=== PATIENT | female | born 1980 | race Caucasian/White ===

== ENCOUNTER 2021-03-02 13:48 | Outpatient (REF) | payer OTHER, SELFPAY ==
--- NOTE | ~2021-03-02 | US_ITS ---
EXAMINATION: US RETROPERITONEAL LIMITED (RENAL ONLY) CLINICAL INFORMATION: Nephrolithiasis. COMPARISON: Renals on the ultrasound dated 02/18/2018. TECHNIQUE: Real-time imaging of the kidneys. FINDINGS: RIGHT KIDNEY: 11.2 x 3.9 x 5.6 cm (SAG x AP x TRV). The kidney is normal in size, contour, and echogenicity. Renal cortical thickness is normal. No calculi or focal parenchymal lesions. No hydronephrosis. LEFT KIDNEY: 10.5 x 5.9 x 5.8 cm (SAG x AP x TRV). The kidney is normal in size, contour, and echogenicity. Renal cortical thickness is normal. No cystic or solid lesions seen. No hydronephrosis. There are multiple echogenic foci seen scattered throughout the left kidney. There is an echogenic midpole stone measuring 0.3 x 0.2 x 0.3 cm without caliectasis. No additional echogenic calculi visualized. There is no hydronephrosis. US/US renal BI IMPRESSION: Small echogenic stone midpole left kidney without caliectasis. There are multiple echogenic scattered foci in the kidneys. The right kidney is unremarkable.
== END 2021-03-02 13:49 | disposition home or self-care (01) ==
LOC: HO.US 13:48
PROVIDERS: Visit Provider Urology
DX: N20.0 Calculus of kidney (principal)
CPT/HCPCS: 76775

== ENCOUNTER → 2021-03-17 13:59 | Outpatient (BNVA) | payer OTHER, SELFPAY | PROVIDERS: PCP Internal Medicine; Visit Provider Urology ==

== ENCOUNTER 2022-04-03 14:47 | Outpatient (REF) | payer OTHER, SELFPAY ==
--- NOTE | ~2022-04-03 | US_ITS ---
EXAMINATION: US RETROPERITONEAL LIMITED (RENAL ONLY) CLINICAL INFORMATION: Calculus of kidney. COMPARISON: Renal ultrasound 03/02/2021 and 02/18/2018. TECHNIQUE: Real-time imaging of the kidneys. FINDINGS: RIGHT KIDNEY: 12.2 x 4.5 x 5.3 cm (SAG x AP x TRV). The kidney is normal in size, contour, and echogenicity. Renal cortical thickness is normal. No calculi or focal parenchymal lesions. No hydronephrosis. LEFT KIDNEY: 11.1 x 5.6 x 5.0 cm (SAG x AP x TRV). The kidney is normal in size, contour, and echogenicity. Renal cortical thickness is normal. No focal parenchymal lesions or hydronephrosis. There is an echogenic focus consistent with small calculus seen within the midpole region measuring approximately 3 mm in largest dimension. US/US renal BI IMPRESSION: Left nephrolithiasis without obstructive uropathy..
== END 2022-04-03 14:48 | disposition home or self-care (01) ==
LOC: HO.US 14:47
PROVIDERS: PCP Internal Medicine; Visit Provider Urology
DX: N20.0 Calculus of kidney (principal)
CPT/HCPCS: 76775

== ENCOUNTER 2022-08-15 05:41 | Day surgery (SDC) | payer OTHER, SELFPAY ==
[2022-08-08 15:33] VITALS: BMI 29.9
--- NOTE | 2022-08-14 08:48 | HO.ANESPROP2 ---
Documented by User: Deana Hayward NP 08/14/22 08:49 HPI - Anesthesia Eval Consult details Narrative: 41yo F for Right Bunionectomy Tailor, PCP cleared PMFSH Active Problems Active Problems: All Active Problems (Updated 08/13/22 @ 10:12 by Veronica Rodriguez, [place]) Nephrolithiasis (Acute) Past Medical History Medical History Allergies Exercise-induced asthma Glaucoma History of kidney stones History of shingles Hx of migraines Surgical History Surgical History History of cystoscopy [place] teeth extracted Social History Social History Are you a primary customer care voice consultant to a significant other at home: No Do you presently have visiting nurse or other home services: No Patient Tobacco Use Status: Never used Tobacco Use of substances other than those prescribed or required for medical reasons: No Have you been hit, kicked, punched, or otherwise hurt by someone within the past year? If so, by whom?: No Are you DNR?: No Advance Directives: No Advance Directives Information Provided: Yes Advance Directives on File: No Recently lost weight without trying: No Eating poorly because of decreased appetite: No Nutrition Risks: No Nutritional Risk Patient : No FDLMP: 08/04/22 : No Meds Allergies Allergy/AdvReac Type Severity Reaction Status Date / Time acetaminophen Allergy Unknown Hives Verified 08/08/22 15:13 [Tylenol-Codeine #3] codeine [Tylenol-Codeine #3] Allergy Unknown Hives Verified 08/08/22 15:13 Home Medications Medication Instructions Recorded Confirmed Last Taken Type norelgestromin 150 mcg-e.estradiol 1 patch topical QWEEK 04/06/22 08/08/22 Unknown History 35 mcg/24 hr weekly transderm patch (Xulane) albuterol sulfate 90 mcg/actuation 2 puff inhalation Q6H PRN wheezing 08/08/22 08/08/22 Unknown History aerosol inhaler brimonidine 0.2 % eye drops 1 drp ophthalmic (eye) BID 08/08/22 08/08/22 Unknown History cetirizine 10 mg tablet (Zyrtec) 10 mg PO DAILY 08/08/22 08/08/22 Unknown History timolol maleate 0.5 % eye drops 1 drp ophthalmic (eye) BID 08/08/22 08/08/22 Unknown History Exam Exam Date and Time: August 14, 2022 0848 Height,Weight and Vital Signs: Height 5 ft 5 in Weight 81.647 kg Assessment and Plan Assessment Anesthesia Assessment: Chart Reviewed Documented by User: Yani Reid MD 08/15/22 07:37 [facility] Past Medical History Medical History Allergies Exercise-induced asthma Glaucoma History of kidney stones History of shingles Hx of migraines Surgical History Surgical History History of cystoscopy [place] teeth extracted History of Problems with Anesthesia: No Social History Social History Are you a primary customer care voice consultant to a significant other at home: No Do you presently have visiting nurse or other home services: No Patient Tobacco Use Status: Never used Tobacco Use of substances other than those prescribed or required for medical reasons: No Have you been hit, kicked, punched, or otherwise hurt by someone within the past year? If so, by whom?: No Are you DNR?: No Advance Directives: No Advance Directives Information Provided: Yes Advance Directives on File: No Recently lost weight without trying: No Eating poorly because of decreased appetite: No Nutrition Risks: No Nutritional Risk Patient : No FDLMP: 08/04/22 : No Meds Allergies Allergy/AdvReac Type Severity Reaction Status Date / Time acetaminophen Allergy Unknown Hives Verified 08/08/22 15:13 [Tylenol-Codeine #3] codeine [Tylenol-Codeine #3] Allergy Unknown Hives Verified 08/08/22 15:13 Home Medications Medication Instructions Recorded Confirmed Last Taken Type norelgestromin 150 mcg-e.estradiol 1 patch topical QWEEK 04/06/22 08/08/22 Unknown History 35 mcg/24 hr weekly transderm patch (Xulane) albuterol sulfate 90 mcg/actuation 2 puff inhalation Q6H PRN wheezing 08/08/22 08/08/22 Unknown History aerosol inhaler brimonidine 0.2 % eye drops 1 drp ophthalmic (eye) BID 08/08/22 08/08/22 Unknown History cetirizine 10 mg tablet (Zyrtec) 10 mg PO DAILY 08/08/22 08/08/22 Unknown History timolol maleate 0.5 % eye drops 1 drp ophthalmic (eye) BID 08/08/22 08/08/22 Unknown History Exam Airway Mallampati Class: II TM Dist: >3cm Neck ROM: Full Loose/Missing/Broken Teeth: No Heart: RRR Lungs: CTA Assessment and Plan Assessment Anesthesia Assessment: Anesthesia Plan Discussed Final Anesthetic Review History of Problems with Anesthesia: No NPO: Yes ASA Class: II Final Preanesthetic Review: Meds/Allgs Chart Reviewed, Consent Obtained/Reviewed and Anes Risks/Benef Reviewed Patient Risk: Low Procedure Risk: Low Anesthetic Plan Anesthetic Plan: MAC: Disposition: Standard PACU
[2022-08-15 06:10] VITALS: BP 127/77; PULSE 99; RESP 18; TEMP 36.6; O2SAT 100; BMI 31.1
[2022-08-15 06:21] LABS: UPreg QC Valid YES; Urine Pregnancy NEGATIVE (NEGATIVE)
[2022-08-15] MEDS: Lactated Ringers 1,000 ML 100 ML IVCONT (06:40)
[2022-08-15 08:20] VITALS: BP 110/63; PULSE 87; RESP 20; TEMP 36.4; O2SAT 96
[2022-08-15 08:25] VITALS: BP 112/66; PULSE 83; RESP 18; O2SAT 96
[2022-08-15 08:30] VITALS: BP 110/57; PULSE 82; RESP 18; O2SAT 96
[2022-08-15 08:35] VITALS: BP 110/61; PULSE 83; RESP 18; O2SAT 96
[2022-08-15 09:17] VITALS: TEMP 36.2
--- NOTE | 2022-08-16 20:30 | OP_ITS ---
SURGEON: Jose Rafael Hein DPM INDICATIONS: The patient has been a patient of mine for some time now. Has exhausted all conservative care including orthotics, injections and off-loading. The patient has pain in all shoe gear from the talus bunionectomy. The patient elected to have surgical procedure done and has signed the consent both in the office as well as in the operating room. The patient understood the risks involve including nonresolution of the issue, infection or loss her limb. PREOPERATIVE DIAGNOSIS: Bunion of the right foot talus, fifth digit. POSTOPERATIVE DIAGNOSIS: Bunion of the right foot talus, fifth digit. PROCEDURE PERFORMED: Talus bunionectomy, right foot. ESTIMATED BLOOD LOSS: None. COMPLICATIONS: ANESTHESIA: MAC anesthesia with 15 cc of 50:50 mixture of 1% plain lidocaine and 0.5% plain ropivacaine. ASSISTANTS: SPECIMENS: HEMOSTASIS: None. TOURNIQUET: No tourniquet was used. PATHOLOGY: Bone was removed, but not sent to pathology MATERIALS: 3-0 Vicryl and 3-0 nylon. INJECTABLES: None. CONDITION: The patient tolerated the anesthesia and procedure well. DISPOSITION: The patient was sent to recovery room in good stable condition with vital signs stable as per Anesthesia. It must be noted that there was good reperfusion of all digits of the right foot following of the procedure, this was noted in the nurse's note. DESCRIPTION OF PROCEDURE: The patient was brought into the operating room via gurney and placed on the operating room table in the supine position. Once adequate amount of IV intravenous sedation was achieved, the above mentioned mixture of local anesthesia was injected into the right foot. The right foot was prepped and draped in a normal sterile fashion. A 15 blade was used in order to make an incision over the dorsolateral aspect of the fifth digit in order to avoid the extensor tendon. It must be noted that the incision was made and follow deepened up to the capsule and periosteum as the capsule and periosteum were reflected off the MPJ joint of the fifth. Sagittal bone saw was used to in order to cut off the lateral aspect and dorsal aspect of the prominent head of the metatarsal. After this was done, copious amounts of normal sterile saline we used in order to lavage the area. It must be noted that there was good lavage done, no bone shards left in. The bump was completely eradicated from the talus bunion, but there was still good joint movement. It must be noted that the capsule and deep layers were sewn up using 3-0 Vicryl and then 3-2 Prolene was used in order to sew up the skin layers. Once this wad accomplished, once again the foot was lavaged with saline and a Xeroform gauze and Justice bandage was used to put over the foot as well as stockinette. The patient was sent to recovery room in no acute distress, was transferred by Anesthesia. I spoke to the patient following procedure and she did not have pain. The patient was given intraoperative Toradol as well as cefazolin. The patient was sent home with Keflex which she already filled as well as ibuprofen for pain. The patient was told to ice and elevate. The patient will follow up in office in few days' time. EQUIPMENT HIRE MANAGER: None CECILIA Herrmann/ETHAN / [phone]
== END 2022-08-15 09:15 | disposition home or self-care (01) ==
PROVIDERS: Nurse Practitioner; PCP Internal Medicine; Visit Provider Podiatrist
PROC: (CPT 28292; principal; 2022-08-15 07:30)
DX: M21.621 Bunionette of right foot (principal); M79.671 Pain in right foot; J45.990 Exercise induced bronchospasm; Z79.899 Other long term (current) drug therapy; Z88.8 Allergy status to other drugs, medicaments and biological substances
CPT/HCPCS: 28110; 81025; J0690; J2250; J2795

== ENCOUNTER 2023-03-29 12:41 | Outpatient (REF) | payer OTHER, SELFPAY ==
--- NOTE | ~2023-03-29 | US_ITS ---
EXAMINATION: US RETROPERITONEAL LIMITED (RENAL ONLY) CLINICAL INFORMATION: Calculus of kidney. COMPARISON: Renal ultrasound 04/03/2022 and 03/02/2021. TECHNIQUE: Real-time imaging of the kidneys. FINDINGS: RIGHT KIDNEY: 11.5 x 4.2 x 5.0 cm (SAG x AP x TRV). The kidney is normal in size, contour, and echogenicity. Renal cortical thickness is normal. No calculi or focal parenchymal lesions. No hydronephrosis. LEFT KIDNEY: 10.7 x 5.8 x 4.7 cm (SAG x AP x TRV). The kidney is normal in size, contour, and echogenicity. Renal cortical thickness is normal. No calculi or focal parenchymal lesions. No hydronephrosis. US/US renal BI IMPRESSION: Normal renal ultrasound.
== END 2023-03-29 12:42 | disposition home or self-care (01) ==
LOC: HO.US 12:41
PROVIDERS: Visit Provider Urology
DX: N20.0 Calculus of kidney (principal)
CPT/HCPCS: 76775

== ENCOUNTER → 2023-04-08 13:41 | Outpatient (BNVA) | payer OTHER, SELFPAY | PROVIDERS: Visit Provider Urology ==

== ENCOUNTER 2024-05-01 13:44 | Outpatient (REF) | payer OTHER, SELFPAY ==
--- NOTE | ~2024-05-01 | US_ITS ---
EXAMINATION: US RETROPERITONEAL LIMITED (RENAL ONLY) CLINICAL INFORMATION: Calculus of kidney. COMPARISON: Renal ultrasound 03/29/2023 and 11/03/2021. TECHNIQUE: Real-time imaging of the kidneys. Limited visualization due to bowel gas. FINDINGS: RIGHT KIDNEY: 11.7 x 4.7 x 5.2 cm (SAG x AP x TRV). No hydronephrosis. No renal calculi. Renal cortical thickness is normal. Limited visualization. LEFT KIDNEY: 10.9 x 5.7 x 4.7 cm (SAG x AP x TRV). Mild fullness left renal collecting system. Renal cortical thickness is normal. No renal calculi. Limited visualization. US/US renal BI IMPRESSION: Mild fullness left renal collecting system. No renal calculi. Limited visualization.
== END 2024-05-01 13:45 | disposition home or self-care (01) ==
LOC: HO.US 13:44
PROVIDERS: PCP Internal Medicine; Visit Provider Urology
DX: N20.0 Calculus of kidney (principal)
CPT/HCPCS: 76775

== ENCOUNTER 2024-06-03 09:36 | Outpatient (AMB) | payer OTHER, SELFPAY ==
--- NOTE | 2024-06-03 09:37 | A.OFFVIS_ITS ---
Intake Visit Reasons: US results(set) Intake Note: Patient is Present for Telephone Follow Up U/S Results Urology Med: Vitamin B6 Antibiotic Allergy: None Blood Thinner: None Birth Certificate Clerk Required: No Allergies acetaminophen [Tylenol-Codeine #3] Allergy (Unknown, Verified 06/03/24 09:38) Hives codeine [Tylenol-Codeine #3] Allergy (Unknown, Verified 06/03/24 09:38) Hives HPI Comments Details: Addie is a pleasant female. She is a patient of . She is seen for the following urologic conditions - nephrolithiasis Telemedicine Evaluation 15 min Consultation [employer] [place] Video Renal ultrasound no evidence of stones No stones in over 5 years Encourage fluids Follow-up p.r.n. Nephrolithiasis/Urolithiasis: They are here for further evaluation of nephrolithiasis - encouraged to drink 16 oz in the morning. They present for evaluation of back pain none flank pain none abdominal pain none Urolithiasis was diagnosed 2002 . The patient previously had kidney stones whose composition w unknown. 24 Hour urine evaluation none on file. Prior treatment(s) include observation. Prior imaging includes a CT (computed tomography) scan of the abdomen/pelvis (stone protocol) December 2015 [facility]. No stones Aprinl 2016 - [facility] , showing no evidence of stones 02/21 , a renal ultrasound, showing radiodense stone(s), on the left, 2-5 mm 02/22 , a [facility] x-ray, showing no evidence of stones 02/23 , a renal ultrasound, showing no evidence of stones - 02/24 renal ultrasound small stone on left, bilateral punctate - 02/25 renal US - left 3mm - 02/27 renal ultrasound no stone seen Current therapeutic plan will be Continue with increased intake, imaging surveillance. [facility] Medical History Allergies Exercise-induced asthma Glaucoma History of kidney stones History of shingles Hx of migraines Surgical History History of cystoscopy [place] teeth extracted Social History Are you a primary care administrative tech to a significant other at home: No Do you presently have visiting nurse or other home services: No Patient Tobacco Use Status: Never used Tobacco Review of Systems Const All systems reviewed & are unremarkable except as noted in HPI and below Reports no additional complaints Resp Reports no additional complaints GI Reports no additional complaints Reports as per HPI Musc Reports no additional complaints Physical Exam Telemedicine evaluation Appropriate responses Regular breathing rate and rhythm HEENT Head: Yes normal to inspection Ears: hearing grossly normal bilaterally Eyes General: appearance normal, both eyes and all related structures Neck Neck: Yes normal visual inspection Chest Chest palpation & inspection: normal inspection of the chest Resp Effort & Inspection: normal respiratory effort and able to speak in complete sentences Telehealth Telehealth Location of provider rendering services: practice address Location of patient: address on file Patient Identification confirmed using: Name, : Yes Telehealth method: video Patient verbally consented to treatment: Yes Patient verbally consented to billing insurance company: Yes Patient informed of any privacy concerns related to visit: Yes Assessment & Plan Assessment & Plan (1) Nephrolithiasis: Code(s): N20.0 - Calculus of kidney Category: Medical Plan P.r.n. follow-up Patient Instructions: Imaging studies, laboratory and physical exam results were discussed and reviewed in detail. No major barriers to patient understanding were identified. An opportunity to ask questions regarding the treatment plan was provided. All questions were answered. The patient expressed understanding and agreement with the above treatment plan. The patient is aware they should contact our office by phone for worsening of their current condition or the appearance of new urologic symptoms. Compliance is encouraged with any medications and followup testing that is ordered. It is a privilege to participate in the urologic care of your patient. If you have any questions or concerns regarding treatment for the above conditions, or other urologic issues, please do not hesitate to contact me. The office telephone contact is [phone]. This note is constructed using voice recognition software. While every effort has been made to ensure accuracy beet worker errors may have been included. Yours sincerely, Dr Gabriel Vidal MD, [facility] - Urology Providers of Expert, Compassionate Care for the Genitourinary System Coding Level of Care Code Tele Est Pt Level 4 (07978) Diagnoses Nephrolithiasis N20.0
== END 2024-06-03 10:19 | disposition home or self-care (01) ==
LOC: HO.HUSH 09:36
PROVIDERS: PCP Internal Medicine; Visit Provider Urology
DX: N20.0 Calculus of kidney (principal)
CPT/HCPCS: 99214

== ENCOUNTER → 2024-06-03 09:36 | Outpatient (BNVA) | payer OTHER, SELFPAY | PROVIDERS: PCP Internal Medicine; Visit Provider Urology ==